=== PATIENT | female | born 1985 | race Hispanic/Latino ===

== ENCOUNTER 2018-03-19 20:45 | Emergency (ER) | payer MEDICAID ==
[2018-03-19 21:12] LABS: BASOPHILS % (AUTO) 0.4 % (0.0-5.0); EOSINOPHILS % (AUTO) 0.7 % (0.0-8.0); HEMATOCRIT 38.1 % (36-48); LYMPHOCYTES % (AUTO) 52.1 % (21.0-51.0); MEAN CORPUSCULAR HEMOGLOBIN 31.7 pg (27.0-33.0); MEAN CORPUSCULAR HGB CONC 34.1 g/dL (32.0-36.0); MEAN CORPUSCULAR VOLUME 92.8 fL (79-99); MONOCYTES % (AUTO) 8.6 % (3.0-13.0); NEUTROPHILS % (AUTO) 38.2 % (40.0-77.0); PLATELET COUNT (AUTO) 297 K/uL (130-400); RED CELL DISTRIBUTION WIDTH 14.7 % (11.0-15.5); WHITE BLOOD COUNT (AUTO) 4.9 K/uL (4.8-10.8)
[2018-03-19 21:18] LABS: APPEARANCE,URINE Clear (CLEAR); BILIRUBIN,URINE Negative (NEGATIVE); COLOR,URINE Yellow (YELLOW); GLUCOSE, URINE (UA) Negative (NEGATIVE); KETONES,URINE Trace mg/dL (NEGATIVE); LEUKOCYTE ESTERASE ,URINE Negative (NEGATIVE); NITRATE,URINE Negative (NEGATIVE); OCCULT BLOOD,URINE Negative (NEGATIVE); PROTEIN,URINE Negative (NEGATIVE); UROBILINOGEN,URINE 0.2 mg/dL (0.2-1.0)
[2018-03-19 21:18] LABS: CARBON DIOXIDE 26 mmol/L (21-32); CHLORIDE 108 mmol/L (101-111); GLOMERULAR FILTR. RATE CALC 67 mL/min (>60); GLUCOSE,RANDOM 101 mg/dL (70-105); POTASSIUM 3.8 mmol/L (3.5-5.1); SODIUM SERUM 144 mmol/L (136-145); UREA NITROGEN, BLOOD 9 mg/dL (7-18)
[2018-03-19 21:20] LABS: HCG,QUAL RESULT NEGATIVE (NEGATIVE)
[2018-03-19 21:22] LABS: ALANINE AMINOTRANSFERASE 24 U/L (12-78); ALBUMIN 3.1 g/dL (3.5-5.0); ALCOHOL, BLOOD 150 mg/dL (0-10); ASPARTATE AMINOTRANSFERASE 14 U/L (10-37); BILIRUBIN,TOTAL 0.8 mg/dL (0.2-1.0); TOTAL PROTEIN, SERUM 6.1 g/dL (6.0-8.3)
[2018-03-19 21:23] LABS: AMPHET/METH SCREEN,URINE NEGATIVE (NEGATIVE); BARBITURATE SCREEN, URINE NEGATIVE (NEGATIVE); BENZODIAZEPINES SCREEN,URINE NEGATIVE (NEGATIVE); CANNABINOID SCREEN,URINE NEGATIVE (NEGATIVE); COCAINE SCREEN,URINE POSITIVE (NEGATIVE); OPIATE SCREEN,URINE NEGATIVE (NEGATIVE); PHENCYCLIDINE SCREEN,URINE NEGATIVE (NEGATIVE)
[2018-03-19 21:27] LABS: ACETAMINOPHEN < 1 mcg/mL (10-30); SALICYLATE < 2.8 mg/dL (2.8-20.0)
== END 2018-03-20 04:51 | disposition home or self-care (01) ==
LOC: EDH 20:45 → EEVIPCON 20:45 → EDH 03-20 04:51
DX: F32.9 Major depressive disorder, single episode, unspecified (principal); R45.851 Suicidal ideations; F14.10 Cocaine abuse, uncomplicated; F10.10 Alcohol abuse, uncomplicated; F41.9 Anxiety disorder, unspecified; Z98.890 Other specified postprocedural states; Z79.899 Other long term (current) drug therapy
CPT/HCPCS: 36415; 80053; 80305; 81003; 81025; 85025; 99285; G0480 ×3; G0481

== ENCOUNTER 2019-03-24 11:52 | Emergency (ER) | payer MEDICAID ==
[2019-03-24] MEDS ORDERED: IBUPROFEN 800 MG TAB ONE (12:08)
[2019-03-24] MEDS ORDERED: ACETAMINOPHEN EXTRA STRENGTH 500 MG TABLET ONE (12:08)
[2019-03-24 12:27] LABS: APPEARANCE,URINE Clear (CLEAR); BILIRUBIN,URINE Negative (NEGATIVE); COLOR,URINE Yellow (YELLOW); GLUCOSE, URINE (UA) Negative (NEGATIVE); KETONES,URINE Negative (NEGATIVE); LEUKOCYTE ESTERASE ,URINE Negative (NEGATIVE); NITRATE,URINE Negative (NEGATIVE); OCCULT BLOOD,URINE Small (NEGATIVE); PROTEIN,URINE Negative (NEGATIVE); UROBILINOGEN,URINE 0.2 mg/dL (0.2-1.0)
[2019-03-24 12:29] LABS: RAPID GROUP A STREP NEGATIVE (NEGATIVE)
[2019-03-24 12:50] LABS: BACTERIA,URINE Rare /HPF (None Seen); RBC,URINE 0-1 /HPF (0-1); SQUAMOUS EPITHELIAL CELL,UR 0-2 /HPF (0-2); WBC,URINE 0-1 /HPF (0-1)
== END 2019-03-24 13:35 | disposition home or self-care (01) ==
LOC: EDH 11:52
DX: J11.1 Influenza due to unidentified influenza virus with other respiratory manifestations (principal); F41.9 Anxiety disorder, unspecified; F32.9 Major depressive disorder, single episode, unspecified
CPT/HCPCS: 81001; 81025; 87804; 87880

== ENCOUNTER 2019-12-20 02:37 | Emergency (ER) | payer MEDICAID ==
[2019-12-20] MEDS ORDERED: OCTYL 2-CYANOACRYLATE 1 EACH TP ONE (03:44)
== END 2019-12-20 03:56 | disposition home or self-care (01) ==
LOC: EDH 02:37
DX: S01.81XA Laceration without foreign body of other part of head, initial encounter (principal); F41.9 Anxiety disorder, unspecified; F32.9 Major depressive disorder, single episode, unspecified; X58.XXXA Exposure to other specified factors, initial encounter; Y93.89 Activity, other specified; Y92.098 Other place in other non-institutional residence as the place of occurrence of the external cause; Y99.8 Other external cause status
CPT/HCPCS: 12052

== ENCOUNTER 2019-12-27 18:08 | Emergency (ER) | payer MEDICAID | END 2019-12-27 18:37 | disposition home or self-care (01) | LOC: EDH 18:08 | DX: S01.81XD Laceration without foreign body of other part of head, subsequent encounter (principal); F41.9 Anxiety disorder, unspecified; F32.9 Major depressive disorder, single episode, unspecified; X58.XXXD Exposure to other specified factors, subsequent encounter | CPT/HCPCS: 99281 ==

== ENCOUNTER 2020-02-15 09:49 | Emergency (ER) | payer MEDICAID ==
[2020-02-15] MEDS ORDERED: HYDROCODONE/ACETAMINOPHEN 10/325 MG TAB ONE (10:24)
== END 2020-02-15 11:14 | disposition home or self-care (01) ==
LOC: EDH 09:49
DX: S40.012A Contusion of left shoulder, initial encounter (principal); F41.9 Anxiety disorder, unspecified; F32.9 Major depressive disorder, single episode, unspecified; W18.39XA Other fall on same level, initial encounter; Y93.01 Activity, walking, marching and hiking; Y92.89 Other specified places as the place of occurrence of the external cause; Y99.8 Other external cause status
CPT/HCPCS: 73030

== ENCOUNTER 2020-08-08 12:06 | Emergency (ER) | payer MEDICAID ==
[2020-08-08 12:29] LABS: BASOPHILS % (AUTO) 0.4 % (0.0-5.0); EOSINOPHILS % (AUTO) 0.7 % (0.0-8.0); HEMATOCRIT 41.8 % (36-48); MEAN CORPUSCULAR HEMOGLOBIN 30.9 pg (27.0-33.0); MEAN CORPUSCULAR HGB CONC 33.7 g/dL (32.0-36.0); MEAN CORPUSCULAR VOLUME 91.5 fL (79-99); MONOCYTES % (AUTO) 9.5 % (3.0-13.0); NEUTROPHILS % (AUTO) 54.2 % (40.0-77.0); PLATELET COUNT (AUTO) 349 K/uL (130-400); RED BLOOD CELL COUNT(AUTO) 4.57 MIL/uL (4.00-5.50); RED CELL DISTRIBUTION WIDTH 13.9 % (11.0-15.5); WHITE BLOOD COUNT (AUTO) 4.5 K/uL (4.8-10.8)
[2020-08-08 12:30] LABS: APPEARANCE,URINE Cloudy (CLEAR); BILIRUBIN,URINE Negative (NEGATIVE); COLOR,URINE Yellow (YELLOW); GLUCOSE, URINE (UA) Negative (NEGATIVE); KETONES,URINE Negative (NEGATIVE); LEUKOCYTE ESTERASE ,URINE Negative (NEGATIVE); NITRATE,URINE Negative (NEGATIVE); OCCULT BLOOD,URINE Negative (NEGATIVE); PROTEIN,URINE Negative (NEGATIVE); UROBILINOGEN,URINE 0.2 mg/dL (0.2-1.0)
[2020-08-08 12:34] LABS: HCG,QUAL RESULT NEGATIVE (NEGATIVE)
[2020-08-08 12:40] LABS: CREATININE 0.7 mg/dL (0.5-1.5); POTASSIUM 4.1 mmol/L (3.5-5.1)
[2020-08-08 12:45] LABS: RBC,URINE 0-1 /HPF (0-1)
[2020-08-08 12:46] LABS: BACTERIA,URINE Rare /HPF (None Seen); SQUAMOUS EPITHELIAL CELL,UR Moderate /HPF (0-2)
[2020-08-08 12:49] LABS: ALBUMIN 4.2 g/dL (3.5-5.0); BILIRUBIN,TOTAL 0.6 mg/dL (0.2-1.0)
[2020-08-08] MEDS ORDERED: IOHEXOL-350 75 ML VIAL IV ONE (12:58)
[2020-08-08] MEDS ORDERED: LIDOCAINE HCL 2% VISCOUS 15 ML UDCUP ONE (13:00)
[2020-08-08] MEDS ORDERED: MAG HYDROX/AL HYDROX/SIMETH ES 30 ML SUSP UDCUP ONE (13:00)
[2020-08-08] MEDS ORDERED: ONDANSETRON HCL 4 MG/2 ML VIAL ONE (13:00)
[2020-08-08] MEDS ORDERED: MORPHINE 4 MG SYG (4MG/1ML) ONE (13:00)
[2020-08-08] MEDS ORDERED: ACETAMINOPHEN 325 MG TAB ONE (13:12)
== END 2020-08-08 15:13 | disposition home or self-care (01) ==
LOC: EDH 12:06
DX: A09 Infectious gastroenteritis and colitis, unspecified (principal); Z20.822 Contact with and (suspected) exposure to COVID-19; F41.9 Anxiety disorder, unspecified; F32.9 Major depressive disorder, single episode, unspecified
CPT/HCPCS: 36415; 76705; 80053; 81001; 81025; 82150; 83690; 85025; 87426; 96374; 96375; 99284; J2270; J2405; U0003; Q9967

== ENCOUNTER 2022-10-01 20:55 | Emergency (ER) | payer MEDICAID ==
[~2022-10-01] VITALS: Ht 165.1 cm; Wt 86.2 kg
[2022-10-01 21:25] LABS: APPEARANCE,URINE CLEAR (CLEAR); BILIRUBIN,URINE NEGATIVE (NEGATIVE); COLOR,URINE COLORLESS (YELLOW); GLUCOSE, URINE (UA) NEGATIVE (NEGATIVE); KETONES,URINE NEGATIVE (NEGATIVE); LEUKOCYTE ESTERASE ,URINE NEGATIVE Leu/uL (NEGATIVE); NITRATE,URINE NEGATIVE (NEGATIVE); OCCULT BLOOD,URINE NEGATIVE (NEGATIVE); PROTEIN,URINE NEGATIVE (NEGATIVE); UROBILINOGEN,URINE 0.2 mg/dL (0.2-1.0)
[2022-10-01 21:27] LABS: BACTERIA,URINE RARE /HPF (None Seen); RBC,URINE 0-1 /HPF (0-1); SQUAMOUS EPITHELIAL CELL,UR RARE /HPF (0-2); WBC,URINE 0-1 /HPF (0-1)
[2022-10-01 21:28] LABS: HCG,QUALITATIVE URINE NEGATIVE (NEGATIVE)
[2022-10-01 21:39] LABS: BASOPHILS % (AUTO) 0.4 % (0.0-5.0); EOSINOPHILS % (AUTO) 0.9 % (0.0-8.0); HEMATOCRIT 39.5 % (36-48); LYMPHOCYTES % (AUTO) 20.2 % (21.0-51.0); MEAN CORPUSCULAR HGB CONC 33.2 g/dL (32.0-36.0); MEAN CORPUSCULAR VOLUME 90.4 fL (79-99); MONOCYTES % (AUTO) 12.2 % (3.0-13.0); NEUTROPHILS % (AUTO) 65.9 % (40.0-77.0); PLATELET COUNT (AUTO) 240 K/uL (130-400); RED BLOOD CELL COUNT(AUTO) 4.37 MIL/uL (4.00-5.50); RED CELL DISTRIBUTION WIDTH 13.5 % (11.0-15.5); WHITE BLOOD COUNT (AUTO) 7.7 K/uL (4.8-10.8)
[2022-10-01 21:55] LABS: CREATININE 0.9 mg/dL (0.5-1.5); POTASSIUM 3.3 mmol/L (3.5-5.1)
[2022-10-01 21:59] LABS: ALBUMIN 3.9 g/dL (3.5-5.0); MAGNESIUM 1.7 mg/dL (1.80-2.40); TOTAL PROTEIN, SERUM 6.9 g/dL (6.0-8.3)
[2022-10-02 00:25] VITALS: BP 124/72; PULSE 84; RESP 18; O2SAT 99
[2022-10-02] MEDS ORDERED: IBUPROFEN 800 MG TAB PO ONE (00:30)
[2022-10-02] MEDS ORDERED: IBUP-1493 PO (01:21)
[2022-10-02] MEDS ORDERED: CYCL-309 PO (01:21)
== END 2022-10-02 01:37 | disposition home or self-care (01) ==
LOC: EDH 20:55
DX: M54.50 Low back pain, unspecified (principal); R11.0 Nausea; R07.9 Chest pain, unspecified; Z20.822 Contact with and (suspected) exposure to COVID-19
CPT/HCPCS: 99285; 71045; 87635; 83735; 84484; 80053; 83690; 85025; 87880; 87804 ×2; 83605; 81001; 81025; 36415; 93005; C9803